=== PATIENT | female | born 1970 | race Caucasian/White ===

== ENCOUNTER 2019-01-14 00:55 | Emergency (ER) | payer OTHER ==
[2019-01-14] MEDS ORDERED: Ondansetron 4 MG/2 ML SDV IVPUSH ONE (01:21)
[2019-01-14] MEDS ORDERED: Tamsulosin 0.4 MG Cap.ER PO ONE (01:21)
[2019-01-14] MEDS ORDERED: Ketorolac 30 MG/ML SDV IVPUSH STA (01:21)
[2019-01-14] MEDS ORDERED: HYDROmorphone 1 MG/ML Syringe IVPUSH ONE (01:21)
--- NOTE | 2019-01-14 01:21 | EDM.PDOC ---
ED HPI GENERAL MEDICAL PROBLEM - General Chief Complaint: Flank Pain Stated Complaint: POSSIBLE KIDNEY STONES Time Seen by Provider: 01/14/19 01:06 Source of Information: Reports: Patient, Family (), RN Notes Reviewed History Limitations: Reports: No Limitations - History of Present Illness INITIAL COMMENTS - FREE TEXT/NARRATIVE: The patient states that she developed left flank pain last week. The pain is sharp in character, and has been coming and going until about 18:00 tonight, at which time it became constant. The pain began to radiate to her left lower quadrant, and she discovered gross hematuria around 18:00 tonight. The patient has not identified any modifiers to her pain since it became constant tonight. She has had nausea, but no emesis. She has had watery diarrhea for the past 2 days. No urinary symptoms, such as dysuria or urinary frequency. No recent fever. The patient had similar symptoms when she experienced a self-diagnosed kidney stone once before. She did not seek medical evaluation in that instance. Here in the ED, the patient is found to be hemodynamically stable and afebrile. The patient's PCP is IDA Mendoza. 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 Left Flank Pain Score (Numeric/FACES): 8 - Related Data Allergies Allergy/AdvReac Type Severity Reaction Status Date / Time No Known Allergies Allergy Verified 01/14/19 01:04 Home Meds: Home Meds Acetaminophen/HYDROcodone [[place] 325-5 MG] 1 - 2 tab PO Q6H PRN #16 tablet 01/14 [Rx] Escitalopram [Lexapro] 20 mg PO DAILY 01/14/19 [History] Ondansetron [Zofran ODT] 1 tab PO Q8H PRN #10 tab.dis 01/14/19 [Rx] Rosuvastatin [Crestor] 10 mg PO DAILY 01/14/19 [History] Tamsulosin HCl [Flomax] 1 cap PO QAM PRN #5 cap.er.24h 01/14/19 [Rx] Ubidecarenone [COQ-10] 30 mg PO DAILY 01/14/19 [History] Zolpidem Tartrate [Ambien Cr] 6.25 mg PO BEDTIME PRN 01/14/19 [History] clonazePAM [Clonazepam] 0.5 mg PO BID 01/14/19 [History] Past Medical History Cardiovascular History: Reports: High Cholesterol Genitourinary History: Reports: Renal Calculus, Urinary Incontinence (stress incontinence) Psychiatric History: Reports: Depression, PTSD, Other (See Below) (Insomnia) - Past Surgical History HEENT Surgical History: Reports: Oral Surgery (wisdom teeth extraction) Female Surgical History: Reports: Section (x 2) Musculoskeletal Surgical History: Reports: Other (See Below) (Right 2nd trigger finger release) Social & Family History - Tobacco Use Smoking Status *Q: Current Every Day Smoker Years of Tobacco use: 32 Packs/Tins Daily: 1 Packs/Tins Daily Comment: Down from 3 ppd - Alcohol Use Alcohol Use History: No - Recreational Drug Use Recreational Drug Use: Yes Drug Use in Last 12 Months: Yes Recreational Drug Type: Reports: Marijuana/Hashish (smokes on occasion) - Living Situation & Occupation Living situation: Reports: , with Spouse, with Family (2 kids) Occupation: Unemployed ED ROS GENERAL - Review of Systems Review Of Systems: ROS reveals no pertinent complaints other than HPI. ED EXAM, RENAL/ - Physical Exam Exam: See Below Exam Limited By: No Limitations General Appearance: Alert, WD/WN, No Apparent Distress Eye Exam: Bilateral Eye: EOMI, Normal Inspection Ears: Normal External Exam, Hearing Grossly Normal Nose: Normal Inspection Throat/Mouth: Normal Inspection, Normal Lips, Normal Voice, No Airway Compromise Head: Atraumatic, Normocephalic Neck: Normal Inspection, Full Range of Motion Respiratory/Chest: No Respiratory Distress, Lungs Clear, Normal Breath Sounds, No Accessory Muscle Use Cardiovascular: Normal Peripheral Pulses, Regular Rate, Rhythm, No Edema, No Gallop, No JVD, No Murmur, No Rub GI/Abdominal: Normal Bowel Sounds, Soft, No Organomegaly, No Distention, No Abnormal Bruit, No Mass, Tender (Left lower quadrant only. Nontender elsewhere.) (Female) Exam: Deferred Rectal (Female) Exam: Deferred Back Exam: Normal Inspection, Full Range of Motion. No: CVA Tenderness (L), CVA Tenderness (R) Extremities: Normal Inspection, Normal Range of Motion, No Pedal Edema, Normal Capillary Refill Neurological: Alert, Oriented, Normal Cognition, No Motor/Sensory Deficits Psychiatric: Normal Affect Skin Exam: Warm, Dry, Intact, Normal Color, No Rash Course - Vital Signs Last Recorded V/S: Last Vital Signs Temp 36.4 C 01/14/19 01:02 Pulse 79 01/14/19 01:02 Resp 16 01/14/19 01:02 BP 131/83 01/14/19 01:02 Pulse Ox 97 01/14/19 01:02 - Orders/Labs/Meds Labs: Laboratory Tests 01/14/19 01/14/19 Range/Units 01:33 01:33 Urine Color Red H (Yellow) Urine Appearance Turbid H (Clear) Urine pH 6.0 (5.0-8.0) Ur Specific [place] 1.025 (1.005-1.030) Urine Protein 3+ H (Negative) Urine Glucose (UA) Negative (Negative) Urine Ketones Trace H (Negative) Urine Occult Blood 3+ H (Negative) Urine Nitrite Negative (Negative) Urine Bilirubin 1+ H (Negative) Urine Urobilinogen 0.2 (0.2-1.0) Ur Leukocyte Esterase Negative (Negative) Urine RBC Too numerous to cnt H (0-5) /hpf Urine WBC 0-5 (0-5) /hpf Ur Squamous Epith Cells 0-5 (0-5) /hpf Ur Transition Epith Cell 0-5 (0-5) Ur Renal Epithelial Cell 0-5 (0-5) /hpf Urine Bacteria Few (FEW) /hpf Hyaline Casts 0-5 (0-5) /lpf Fine Granular Casts 0-5 (0-5) /lpf Broad Casts 0-5 (0-5) /hpf Urine Mucus Many H (FEW) /hpf Urine HCG, Qual Negative (NEGATIVE) Meds: Medications Discontinued Medications Generic Name Dose Route Start Last Admin Trade Name Michele PRN Reason Stop Dose Admin Hydromorphone HCl 1 mg 01/14/19 01:21 01/14/19 01:37 Dilaudid IVPUSH 01/14/19 01:22 1 mg ONETIME ONE Administration Sodium Chloride 1,000 mls @ 150 mls/hr 01/14/19 01:30 01/14/19 01:34 Normal Saline IV 150 mls/hr ASDIRECTED MJ Administration Ketorolac Tromethamine 30 mg 01/14/19 01:21 01/14/19 01:36 Toradol IVPUSH 01/14/19 01:22 30 mg ONETIME STA Administration Ondansetron HCl 4 mg 01/14/19 01:21 01/14/19 01:35 Zofran IVPUSH 01/14/19 01:22 4 mg ONETIME ONE Administration Tamsulosin HCl 0.4 mg 01/14/19 01:21 01/14/19 01:38 Flomax PO 01/14/19 01:22 0.4 mg ONETIME ONE Administration - Re-Assessments/Exams Free Text/Narrative Re-Assessment/Exam: 01/14/19 01:20 The patient's history is certainly consistent with a left ureterolith, however, on physical examination, she has no CVA tenderness, and reports tenderness to palpation of her left lower quadrant, which is not consistent with a stone. I have ordered a urinalysis and a urine test. If there is blood in the urine, I will order a CT scan of the abdomen and pelvis without contrast. If there is no blood in the urine, I will order a CT scan of the abdomen and pelvis with oral and IV contrast. The patient does not believe that she can provide a clean urine sample, and agreed to have the nurse acquire a sample by quick catheter. In the meantime, the patient will receive some hydromorphone, tamsulosin, IV fluid, ketorolac, and ondansetron. 01/14/19 02:22 The patient's urinalysis was trace a large amount of blood, with no sign of a UTI. Her urine test is negative. I have ordered a CT of the abdomen and pelvis without contrast to evaluate for a ureterolith. 01/14/19 04:32 CT of the abdomen and pelvis without contrast is read by Sandra as: A 2 mm stone is present within the distal left ureter just proximal to the ureterovesicular junction resulting in mild to moderate hydroureteronephrosis, edematous swelling of the left kidney, and perinephric/periureteral fat stranding. Given the size and location of the stone, the patient will likely pass it on her own. I would like her to take [id number] ibuprofen. I will discharge her home with prescriptions for [place], tamsulosin, and Zofran, along with a urine strainer. I would like her to stay adequately hydrated. I will give her the number for a Urologist, should her pain not improve within the next week. Departure - Departure Time of Disposition: 04:35 Disposition: Home, Self-Care 01 Condition: Good Clinical Impression: Ureterolithiasis - Discharge Information *PRESCRIPTION DRUG MONITORING PROGRAM REVIEWED*: Not Applicable *COPY OF PRESCRIPTION DRUG MONITORING REPORT IN PATIENT TERESA: Not Applicable Prescriptions: Acetaminophen/HYDROcodone [[place] 325-5 MG] 1 - 2 tab PO Q6H PRN #16 tablet PRN Reason: Pain (Severe 7-10) Ondansetron [Zofran ODT] 1 tab PO Q8H PRN #10 tab.dis PRN Reason: Nausea/Vomiting Tamsulosin HCl [Flomax] 1 cap PO QAM PRN #5 cap.er.24h PRN Reason: Pain Instructions: Kidney Stones, [id number] Referrals: Emma Song PA-C [Primary Care Provider] - Drew Galicia MD [Ordering Only Provider] - Forms: ED Department Discharge Additional Instructions: You were seen in the emergency room for left flank pain radiating to your lower left abdomen, along with bloody urine. Workup in the ER included a urinalysis, a urine test, and a CT scan of your abdomen and pelvis without contrast. The CT scan confirmed that you have a 2 mm stone in your distal left ureter. You do not have a urinary tract infection. Based on the size and location of the stone, you will almost certainly pass it on your own. Take [id number] ibuprofen, 2-3 tablets (400-600 mg) every 8 hours, with food, around the clock. You may take 1-2 tablets of the opioid pain reliever [place] up to every 6 hours, as needed for pain not relieved by ibuprofen. If you take [place], do not drive for 10 hours after taking. [place] may cause constipation, so consider taking a stool softener. Take one tablet of the anti-spasm medicine tamsulosin (Flomax) every morning, starting tomorrow morning, 01/15/2019, as needed for pain. Dissolve one tablet of the anti-nausea medicine Zofran on your tongue up to every 8 hours, as needed for nausea/vomiting. Stay adequately hydrated. Strain all of your urine. If you capture the stone, take it to your PCP for analysis. If your pain has not resolved within a week, please follow-up with the Urologist Dr. Drew Galicia, in [place]. If any other problems, please do not hesitate to return to the ER.
[2019-01-14] MEDS ORDERED: Sodium Chloride 0.9% 1,000 ML IV SCH (01:30)
--- NOTE | 2019-01-14 08:51 | CT ---
CT abdomen and pelvis Technique: Multiple axial sections were obtained from above the dome of the diaphragm inferiorly through the pubic symphysis. Intravenous contrast and oral contrast was not utilized. Study has been performed as a ureteral stone protocol. Findings: Left ureter is mildly dilated. This finding is caused by a distal obstructing stone measuring about 3.2 mm located slightly proximal to the UVJ. Two nonobstructing calculi are seen within the lower left kidney measuring 4 mm or less in size. No abnormal calcifications are seen within the right kidney. Small portion of the visualized lung bases showed nothing acute. Noncontrast appearance of the liver shows no focal parenchymal abnormality. Adrenal glands show no nodule. Pancreas is within normal limits. Spleen appears within normal limits. Atherosclerotic calcification is noted within the aorta and iliac vessels. No aneurysm is identified. Appendix is seen which is normal in size. No pelvic mass or adenopathy is seen. No free fluid or inflammatory change is seen. Bone window settings were reviewed which show disc space narrowing and vacuum phenomena at L5-S1. Impression: 1. Mildly dilated left ureter caused by a 3.2 mm obstructing stone located distally slightly proximal to the UVJ. 2. Two small nonobstructing calculi within the left kidney. 3. Other incidental findings. Diagnostic code #3 I agree with preliminary report from [facility], finalized on 01/14/19, 5:25 AM Central Time
== END 2019-01-14 05:12 | disposition home or self-care (01) ==
LOC: JD.ED 00:55
DX: N20.2 Calculus of kidney with calculus of ureter (principal); E78.00 Pure hypercholesterolemia, unspecified; F17.210 Nicotine dependence, cigarettes, uncomplicated; Z79.899 Other long term (current) drug therapy
CPT/HCPCS: 74176; 81001; 81025; 96361; 96374; 96375; 99284; A9270; J1170; J1885; J2405; J7040

== ENCOUNTER 2019-08-01 02:58 | Emergency (ER) | payer BC, OTHER ==
[2019-08-01] MEDS ORDERED: Alum Hydrox/Mag Hydrox/Simeth 30 ML, Lidocaine 2% 15 ML PO STA ×2 (03:15)
[2019-08-01] MEDS ORDERED: Ondansetron 4 MG Tab.DIS PO ONE (03:48)
[2019-08-01] MEDS ORDERED: Loperamide 2 MG Cap PO STA (03:48)
--- NOTE | 2019-08-01 03:55 | EDM.PDOC ---
ED HPI GENERAL MEDICAL PROBLEM - General Chief Complaint: Abdominal Pain Stated Complaint: [facility] Time Seen by Provider: 08/01/19 03:08 Source of Information: Reports: Patient, Family () History Limitations: Reports: Other (The patient is somewhat hostile, seemingly angry at being asked questions, and replying "I don't know" to many) - History of Present Illness INITIAL COMMENTS - FREE TEXT/NARRATIVE: Mrs. Rivas is a 49-year-old woman with a past medical history significant for ureterolithiasis, depression, and PTSD, who states that she was woken at 02: 30 this morning with crampy epigastric pain, nausea, and vomiting. No diarrhea until she arrived to the ED, when she needed to have an immediate bowel movement and had an episode of watery, non-bloody diarrhea. She states that her symptoms essentially resolved after the episode of diarrhea, and when I examined her, she reported being symptom-free. No recent urinary symptoms. No recent fever. No prior similar symptoms. The patient did not take any over-the- counter or home remedies prior to coming to the ED. No similarly ill close contacts. No recent bad tasting or spoiled food. No recent antibiotics. No recent travel. The patient's PCP is IDA Mendoza. The patient states that she did receive an influenza vaccine this season. 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 Other Treatments 2ND GRADE TEACHER: Zofran 4 mg IVP Lower Abdomen Pain Score (Numeric/FACES): 10 - Related Data Allergies Allergy/AdvReac Type Severity Reaction Status Date / Time No Known Allergies Allergy Verified 08/01/19 03:05 Home Meds: Home Meds Acetaminophen/HYDROcodone [[place] 325-5 MG] 1 - 2 tab PO Q6H PRN #16 tablet 01/14 [Rx] Escitalopram [Lexapro] 20 mg PO DAILY 01/14/19 [History] Ondansetron [Zofran ODT] 1 tab PO Q8H PRN #10 tab.dis 01/14/19 [Rx] Rosuvastatin [Crestor] 10 mg PO DAILY 01/14/19 [History] Tamsulosin HCl [Flomax] 1 cap PO QAM PRN #5 cap.er.24h 01/14/19 [Rx] Ubidecarenone [COQ-10] 30 mg PO DAILY 01/14/19 [History] Zolpidem Tartrate [Ambien Cr] 6.25 mg PO BEDTIME PRN 01/14/19 [History] clonazePAM [Clonazepam] 0.5 mg PO BID 01/14/19 [History] Ondansetron [Zofran ODT] 1 tab PO Q8H PRN #10 tab.dis 08/01/19 [Rx] Past Medical History Cardiovascular History: Reports: High Cholesterol Respiratory History: Reports: Asthma (suspected, not tested) Genitourinary History: Reports: Renal Calculus, Urinary Incontinence (stress incontinence) 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: Psychiatric History: Reports: Depression, PTSD, Other (See Below) (Insomnia) Endocrine/Metabolic History: Reports: Obesity/BMI 30+ Dermatologic History: Reports: Eczema - Past Surgical History HEENT Surgical History: Reports: Oral Surgery (wisdom teeth extraction) Female Surgical History: Reports: Section (x 2) Musculoskeletal Surgical History: Reports: Other (See Below) (Rithg 2nd trigger finger release) Oncologic Surgical History: Reports: Other (See Below) (Left neck tumor excision - benign) Social & Family History - Tobacco Use Smoking Status *Q: Current Every Day Smoker Years of Tobacco use: 37 Packs/Tins Daily: 2 Packs/Tins Daily Comment: Down from 3 ppd - Alcohol Use Alcohol Use History: Yes Alcohol Use Frequency: Socially - Recreational Drug Use Recreational Drug Use: Yes Drug Use in Last 12 Months: Yes Recreational Drug Type: Reports: Marijuana/Hashish (smokes daily) - Living Situation & Occupation Living situation: Reports: , with Spouse, with Family (2 kids) Occupation: Unemployed ED ROS GENERAL - Review of Systems Review Of Systems: Comprehensive ROS is negative, except as noted in HPI. ED EXAM, GI/ABD - Physical Exam Exam: See Below Exam Limited By: Other (Patient was examined after an episode of diarrhea in the ED) General Appearance: Alert, WD/WN, No Apparent Distress Eyes: Bilateral: Normal Appearance, EOMI Ears: Normal External Exam, Hearing Grossly Normal Nose: Normal Inspection Throat/Mouth: Normal Inspection, Normal Lips, Normal Voice, No Airway Compromise Head: Atraumatic, Normocephalic Neck: Normal Inspection, Full Range of Motion Respiratory/Chest: No Respiratory Distress, Lungs Clear, Normal Breath Sounds, No Accessory Muscle Use Cardiovascular: Normal Peripheral Pulses, Regular Rate, Rhythm, No Edema, No Gallop, No JVD, No Murmur, No Rub GI/Abdominal Exam: Normal Bowel Sounds, Soft, Non-Tender (including the epigastrium), No Organomegaly, No Distention, No Abnormal Bruit, No Mass (Female) Exam: Deferred Rectal (Female) Exam: Deferred Back Exam: Normal Inspection, Full Range of Motion. No: CVA Tenderness (L), CVA Tenderness (R) Extremities: Normal Inspection, Normal Range of Motion, No Pedal Edema, Normal Capillary Refill Neurological: Alert, Oriented, Normal Cognition, No Motor/Sensory Deficits Psychiatric: Other (Somewhat hostile) Skin Exam: Warm, Dry, Intact, Normal Color, No Rash Course - Vital Signs Last Recorded V/S: Last Vital Signs Temp 37.0 C 08/01/19 03:05 Pulse 79 08/01/19 03:05 Resp 16 08/01/19 03:05 BP 126/113 H 08/01/19 03:05 Pulse Ox 98 08/01/19 03:05 - Orders/Labs/Meds Meds: Medications Discontinued Medications Generic Name Dose Route Start Last Admin Trade Name Freq PRN Reason Stop Dose Admin Al Hydroxide/Mg Hydroxide 30 0 ml 08/01/19 03:15 ml/ Lidocaine HCl 15 ml PO 08/01/19 03:16 ONETIME STA Loperamide HCl 4 mg 08/01/19 03:48 08/01/19 03:56 Imodium PO 08/01/19 03:49 4 mg ONETIME STA Administration Ondansetron HCl 4 mg 08/01/19 03:48 08/01/19 03:56 Zofran Odt PO 08/01/19 03:49 4 mg ONETIME ONE Administration - Re-Assessments/Exams Free Text/Narrative Re-Assessment/Exam: 08/01/19 03:49 As above, the patient developed epigastric abdominal pain, nausea, and vomiting this morning, and had a single episode of diarrhea here in the ED, after which time her symptoms resolved. Initially, when the patient was complaining of epigastric abdominal pain, I had ordered a GI cocktail, but before she could be given a, she needed to go to the bathroom, and when she returned, she was symptom-free, therefore I canceled it. At present, she no longer has any abdominal pain, and has a benign abdominal examination. By definition, the patient is suffering from gastroenteritis, and, as she has no fever or bloody diarrhea, and she has not eaten any foods that have been sitting out for a long period of time, it is most likely viral gastroenteritis. I do not see an indication for blood work or a CT scan of her abdomen and pelvis. The patient will be treated with 4 mg of oral Zofran and 4 mg of oral loperamide. I will discharge her home with a prescription for Zofran and recommend that she take [id number] loperamide if her diarrhea persists. I am recommending that she stay adequately hydrated with Gatorade or Powerade, and if she is hungry, to eat a bland diet, such as rice, oatmeal, or chicken noodle soup with saltine crackers. Departure - Departure Time of Disposition: 03:51 Disposition: Home, Self-Care 01 Condition: Good Clinical Impression: Viral gastroenteritis, Menstrual cramps - Discharge Information *PRESCRIPTION DRUG MONITORING PROGRAM REVIEWED*: Not Applicable *COPY OF PRESCRIPTION DRUG MONITORING REPORT IN PATIENT TERESA: Not Applicable Prescriptions: Ondansetron [Zofran ODT] 1 tab PO Q8H PRN #10 tab.dis PRN Reason: Nausea/Vomiting Instructions: Viral Gastroenteritis, Adult, [id number], Dysmenorrhea, Easy-to -Read Referrals: Emma Song PA-C [Ordering Only Provider] - Forms: ED Department Discharge Additional Instructions: You were seen in the emergency room or waking with upper abdominal pain, nausea and vomiting. Your symptoms significantly improved after an episode of diarrhea in the ER. Based on your history and physical examination, you are suffering from viral gastroenteritis. A prescription for the anti-nausea medicine Zofran has been sent to the [facility] pharmacy, located just south and across the street from [facility]. You may dissolve one tablet of Zofran on your tongue up to every 8 hours, as needed for nausea/vomiting. You may also take one tablet (2 mg) of the antidiarrheal medicine loperamide ( Imodium AD) after each loose bowel movement, to a maximum of 8 tablets (16 mg) within a 24-hour period. Stay adequately hydrated. Gatorade or Powerade are best. Avoid juice or milk, as these may worsen diarrhea. If you are hungry, we recommend a bland diet, such as rice or oatmeal. Chicken noodle soup with saltine crackers is an excellent choice. Follow-up with your PCP, IDA Mendoza, as needed. If any other problems, please do not hesitate to return to the ER. Sepsis Event Note - Evaluation Sepsis Screening Result: No Definite Risk - Focused Exam Vital Signs: Vital Signs Temp Pulse Resp BP Pulse Ox 08/01/19 03:05 37.0 C 79 16 126/113 H 98 Date Exam was Performed: 08/01/19 Time Exam was Performed: 04:22
== END 2019-08-01 04:07 | disposition home or self-care (01) ==
LOC: JD.ED 02:58
DX: A08.4 Viral intestinal infection, unspecified (principal); N94.6 Dysmenorrhea, unspecified; E78.00 Pure hypercholesterolemia, unspecified; F32.9 Major depressive disorder, single episode, unspecified; F17.210 Nicotine dependence, cigarettes, uncomplicated; E66.9 Obesity, unspecified; Z68.33 Body mass index [BMI] 33.0-33.9, adult; Z79.899 Other long term (current) drug therapy
CPT/HCPCS: 99283; A9270